=== PATIENT | female | born 1955 | race Caucasian/White ===

== ENCOUNTER → 2019-02-24 10:59 | Outpatient (BNVA) | payer MEDICARE, SELFPAY | PROVIDERS: PCP Family Medicine; Visit Provider Urology | DX: N39.0 Urinary tract infection, site not specified (principal) | CPT/HCPCS: 81001 ==

== ENCOUNTER → 2019-04-13 10:34 | Outpatient (BNVA) | payer MEDICARE, SELFPAY | PROVIDERS: PCP Family Medicine; Visit Provider Urology | DX: N39.0 Urinary tract infection, site not specified (principal) | CPT/HCPCS: 81001 ==

== ENCOUNTER 2019-06-13 12:46 | Outpatient (CLI) | payer MEDICARE, SELFPAY ==
--- NOTE | 2019-06-13 13:15 | XR_ITS ---
WS: [id number] XR KUB 76160 REASON FOR EXAM: Stone FINDINGS: There is evidence of previous cholecystectomy. No definite stones are seen in the region of the kidneys ureter bladder. XR/XR KUB 92075 IMPRESSION: Negative the abdominal survey.
== END 2019-06-13 12:47 | disposition home or self-care (01) ==
PROVIDERS: PCP Family Medicine; Visit Provider Nurse Practitioner Family
DX: R10.9 Unspecified abdominal pain (principal)
CPT/HCPCS: 74018; 80053; 81001

== ENCOUNTER → 2020-06-14 15:11 | Outpatient (BNVA) | payer MEDICARE, SELFPAY | PROVIDERS: PCP Nurse Practitioner Family; Visit Provider Nurse Practitioner Family | DX: N39.41 Urge incontinence (principal); N39.0 Urinary tract infection, site not specified | CPT/HCPCS: 87086 ==

== ENCOUNTER → 2020-07-30 11:45 | Outpatient (BNVA) | payer MEDICARE, SELFPAY | PROVIDERS: PCP Nurse Practitioner Family; Visit Provider Nurse Practitioner Family | DX: N39.0 Urinary tract infection, site not specified (principal); N39.41 Urge incontinence | CPT/HCPCS: 81003; 87086 ==

== ENCOUNTER → 2020-09-26 13:57 | Outpatient (BNVA) | payer MEDICARE, SELFPAY | PROVIDERS: PCP Nurse Practitioner Family; Visit Provider Urology | DX: N39.41 Urge incontinence (principal); N39.0 Urinary tract infection, site not specified; B37.3 Candidiasis of vulva and vagina | CPT/HCPCS: 81003 ==

== ENCOUNTER 2020-11-29 10:21 | Emergency (ER) | payer MEDICARE, SELFPAY ==
[2020-11-29 10:25] VITALS: BP 157/77; PULSE 88; RESP 18; TEMP 36.6; O2SAT 90; BMI 21.4
--- NOTE | 2020-11-29 10:42 | ED_ITS ---
HPI - Syncope General: Chief Complaint: Syncope Stated Complaint: FALL, L HIP PAIN Time Seen by Provider: 11/29/20 10:25 History of Present Illness: HPI narrative: Patient is a 65-year-old female comes to the ED with a syncopal episode. Patient lives at long-term and says that fall occurred there. She stood up from sitting to grab something and states she blacked out. She was found then on the floor by her roommate. Her main complaint is bilateral hip pain. Patient says she has had syncopal episodes in the past. She denies any headache, neck pain, chest pain, shortness of breath, abdominal pain, nausea/vomiting, bladder or bowel symptoms. Associated symptoms: Deny abdominal pain, chest pain, fever(s), headache(s) or nausea Review of Systems Const: Denies: fever(s), chills or fatigue Eyes: Denies: change in vision or eye discomfort ENMT: Denies: throat pain, odynophagia, nasal discharge or nasal congestion Card: Reports: syncope; Denies: chest pain, palpitations, edema, swelling of feet/ankles, dyspnea on exertion or orthopnea Resp: Denies: dyspnea, productive cough or non-productive cough GI: Denies: abdominal pain, nausea, vomiting, diarrhea, constipation or hematochezia : Denies: flank pain, dysuria or hematuria Musc: Reports: joint pain (bilateral hip pain); Denies: neck pain, back pain or extremity swelling Skin/Breast: Denies: rash or new lesions Neuro: Denies: headache(s), numbness in extremities or weakness in extremities PFS ED PFSH: Medical History GERD (gastroesophageal reflux disease) Hypertension Left flank pain Left renal stone Recurrent urinary tract infection Seizure disorder Urgency incontinence Surgical History S/P appendectomy S/P brain surgery S/P cholecystectomy S/P hysterectomy Family History Family/Other CAD (coronary artery disease) Lung disease Mother , at age 87 Heart attack Father , AT AGE 56 Heart attack Social History Smoking and tobacco status: current every day smoker e-cigarettes Alcohol intake: never Adopted: No Caregiver/support person: No Lives independently: No Housing: Assisted Living Facility Marital status: / Current occupational status: retired History of recent travel: No Current gender identity: Female Physical Exam Const: COMMON NORMALS: no acute distress, patient oriented x3, healthy appearing and alert GENERAL APPEARANCE: cooperative and comfortable HENMT: COMMON NORMALS: normocephalic HEAD & SCALP: normocephalic MOUTH: Normal oral and palatal mucosa present THROAT: posterior oropharynx normal and uvula midline Neck/C-Spine: COMMON NORMALS: supple GENERAL: Yes normal visual inspection Resp: COMMON NORMALS: normal respiratory effort, No retractions, No use of accessory muscles and clear to auscultation bilaterally AUSCULTATION: clear to auscultation bilaterally Cardio: COMMON NORMALS: regular rate, regular rhythm, S1 normal heart sound present, S2 normal heart sound present, No gallops present (Cardio), No clicks present (Cardio), No murmurs present (Cardio) and Peripheral pulses 2+ throughout RATE: regular rate RHYTHM: regular rhythm HEART SOUNDS: S1 normal heart sound present and S2 normal heart sound present PERIPHERAL PULSES: Peripheral pulses 2+ throughout GI: COMMON NORMALS: Normal to inspection, nondistended, normoactive bowel sounds present, Soft to palpation, non-tender and no masses PALPATION: Yes Soft to palpation : COMMON NORMALS: Yes no CVA tenderness BLADDER/KIDNEY EXAM: Yes no CVA tenderness Back/Pelvis: COMMON NORMALS: no CVA tenderness Extremity: COMMON NORMALS: normal to inspection Neuro: COMMON NORMALS: patient oriented x3 and moves all extremities SENSORIUM/ORIENTATION: Yes alert Skin: GENERAL SKIN EXAM: dry skin Course ED course: Patient was unable to urinate while here in the ED. The nurse performed a bladder scan and she had over 600 mL of urine in her bladder and was unable to urinate. Cardenas catheter was then placed by nurse. Vital Signs: Vital signs: Vital Signs Temperature 97.6 F 11/29/20 10:43 Pulse Rate 80 11/29/20 10:43 Respiratory Rate 26 H 11/29/20 10:43 Blood Pressure 152/80 11/29/20 10:43 Pulse Oximetry 92 11/29/20 10:43 MDM - Syncope MDM Narrative: Medical decision making narrative: Patient is a 65-year-old female that resides in a long-term and had a syncopal episode just prior to arrival. Patient says she stood up and then blacked out. She says she has had problems in the past with having episodes of syncope when she goes from sitting to standing. Her main complaint currently is hip pain, but denies any headache or neck pain. She does report feeling the need to urinate but is unable to go. Nurse performed on bladder scan and over 600 mL were detected. Nurse then placed a Cardenas catheter and patient had over 600 mL of urine drained out. Patient felt like her main reason she could not urinate was because she did not feel comfortable going on a bedpan. Upon arrival patient's O2 saturation was about 90 to 92% on room air. She was then put on 2 L of oxygen via nasal cannula. She was then taken off the oxygen during her time here in the ED and her O2 levels remained consistently above 94%. Vital stable. exam was benign. EKGs showed sinus rhythm with a rate around [address] segment elevation or depression seen. Troponins were negative. CBC and CMP were unremarkable. UA showed no signs of infection. X-ray of bilateral hip showed a nondisplaced left pubic symphysis fracture. Head CT and cervical spine CT showed no acute findings. Chest x-ray was normal. I placed an order with case management for patient to have referral to urology and orthopedic. Patient was diagnosed with a left pubic symphysis fracture and acute urinary retention. She was discharged back to her long-term facility with a Cardenas catheter in place and a prescription for hydrocodone to help with pain from fracture. Return to ED precautions given. Patient was told that case management will contact them to set her up with appointments with urology and Ortho. Return to ED precautions given. Patient understood and agreed with plan. Lab Data: Attestation: I reviewed the patient's lab results. Labs: Lab Results 11/29/20 11/29/20 11/29/20 11:00 11:00 11:00 WBC 8.3 10^3/uL 10^3/ uL (4.0-10.0) RBC 4.49 10^6/uL 10^6 /uL (4.1-5.3) Hgb 13.3 g/dL g/dL (11.5-15.3) Hct 41.7 % % (37.0-47.0) MCV 92.9 fl fl (81-99) MCH 29.6 pg pg (28.0-34.0) MCHC 31.9 g/dL g/dL (30.0-36.0) RDW 21.3 % H % (12.1-15.1) Plt Count 172 10^3/cmm 10^3 /cmm (130-400) MPV 11.2 fL H fL (7.4-10.4) Neut % (Auto) 64.4 % % Lymph % (Auto) 15.8 % % Craven % (Auto) 17.6 % % Eos % (Auto) 0.6 % % Baso % (Auto) 0.4 % % Neut # (Auto) 5.32 10^3/uL 10^3 /uL (1.8-7.7) Lymph # (Auto) 1.3 10^3/uL 10^3/ uL (0.8-4.8) Craven # (Auto) 1.5 10^3/uL H 10^ 3/uL (0.2-0.9) Eos # (Auto) 0.1 10^3/uL 10^3/ uL (0.0-0.8) Baso # (Auto) 0.0 10^3/uL 10^3/ uL (0.0-0.1) Nucleated RBC % (a uto) 0 % % Nucleated RBCs # 0.0 /100WBC /100W BC PT INR APTT Specimen Type Sample Site ABG pH ABG pCO2 ABG pO2 ABG HCO3 ABG O2 Saturation ABG Base Excess Jett Test A-a O2 Gradient Hematocrit Hgb O2 Saturation Carboxyhemoglobin Methemoglobin Total Hemoglobin Ionized Calcium O2 Delivery Device O2 Liters/Min FiO2 Ecdis N Navigation Operator ID Sodium Cancelled Potassium Cancelled Chloride Cancelled Carbon Dioxide Cancelled Anion Gap Cancelled BUN Cancelled Creatinine Cancelled GFR Calculation Cancelled Glucose Cancelled Calculated Osmolal ity Cancelled Lactic Acid Calcium Cancelled Magnesium Cancelled Total Bilirubin Cancelled AST Cancelled ALT Cancelled Alkaline Phosphata se Cancelled Troponin T Baselin e Cancelled Troponin T 120 Min ale Delta Troponin T NT-Pro-B Natriuret Pep Cancelled Total Protein Cancelled Albumin Cancelled Globulin Cancelled Urine Color Urine Appearance Urine pH Ur Specific Gravit y Urine Protein Urine Glucose (UA) Urine Ketones Urine Blood Urine Nitrate Urine Bilirubin Urine Urobilinogen Ur Leukocyte Sabrina ase 11/29/20 11/29/20 11/29/20 11:00 11:00 11:14 WBC RBC Hgb Hct MCV MCH MCHC RDW Plt Count MPV Neut % (Auto) Lymph % (Auto) Craven % (Auto) Eos % (Auto) Baso % (Auto) Neut # (Auto) Lymph # (Auto) Craven # (Auto) Eos # (Auto) Baso # (Auto) Nucleated RBC % (a uto) Nucleated RBCs # PT Cancelled INR Cancelled APTT Cancelled Specimen Type Arterial Sample Site Brachial, right ABG pH 7.47 H (7.35-7.45) ABG pCO2 37.7 mmHg mmHg (35-45) ABG pO2 65.3 mmHg L mmHg (80.0-100.0) ABG HCO3 27.4 mmol/L H mmo l/L (22-26) ABG O2 Saturation 94.3 ABG Base Excess 3.7 mmol/L H mmol /L (-2.0-2.0) Jett Test N/a A-a O2 Gradient 11.5 mmHg H mmHg (5-10) Hematocrit 40.1 % % (37-47) Hgb O2 Saturation 92.6 % L % (95-100) Carboxyhemoglobin 1.4 %THgb %THgb (0.4-20.1) Methemoglobin 0.3 % L % (0.4-1.5) Total Hemoglobin 13.1 g/dL g/dL (12-16) Ionized Calcium 1.2 mmol/L mmol/L (1.1-1.4) O2 Delivery Device Nc O2 Liters/Min 2.0 % % FiO2 28.0 % % Ecdis N Navigation Operator ID Ed Sodium 137.0 mmol/L mmol /L (131-143) Potassium 4.0 mmol/L mmol/L (3.5-5.0) Chloride Carbon Dioxide Anion Gap BUN Creatinine GFR Calculation Glucose 98.0 mg/dL mg/dL (70-115) Calculated Osmolal ity Lactic Acid Cancelled Calcium Magnesium Total Bilirubin AST ALT Alkaline Phosphata se Troponin T Baselin e Troponin T 120 Min ale Delta Troponin T NT-Pro-B Natriuret Pep Total Protein Albumin Globulin Urine Color Urine Appearance Urine pH Ur Specific Gravit y Urine Protein Urine Glucose (UA) Urine Ketones Urine Blood Urine Nitrate Urine Bilirubin Urine Urobilinogen Ur Leukocyte Sabrina ase 11/29/20 11/29/20 11/29/20 12:05 12:05 12:05 WBC RBC Hgb Hct MCV MCH MCHC RDW Plt Count MPV Neut % (Auto) Lymph % (Auto) Craven % (Auto) Eos % (Auto) Baso % (Auto) Neut # (Auto) Lymph # (Auto) Craven # (Auto) Eos # (Auto) Baso # (Auto) Nucleated RBC % (a uto) Nucleated RBCs # PT 13.10 SECONDS SEC ONDS (12.1-14.9) INR 0.96 (0.8-1.2) APTT 32.9 SECONDS SECO NDS (23.9-36.7) Specimen Type Sample Site ABG pH ABG pCO2 ABG pO2 ABG HCO3 ABG O2 Saturation ABG Base Excess Jett Test A-a O2 Gradient Hematocrit Hgb O2 Saturation Carboxyhemoglobin Methemoglobin Total Hemoglobin Ionized Calcium O2 Delivery Device O2 Liters/Min FiO2 Ecdis N Navigation Operator ID Sodium 135 mmol/L L mmol /L (136-145) Potassium 4.0 mmol/L mmol/L (3.5-5.1) Chloride 97 mmol/L L mmol/ L (98-107) Carbon Dioxide 28 mmol/L mmol/L (22-29) Anion Gap 14.0 (5-19) BUN 15 mg/dL mg/dL (8-23) Creatinine 0.8 mg/dL mg/dL (0.5-0.9) GFR Calculation 71.8 mL/min L mL/ min (90-130) Glucose 89 mg/dL mg/dL (65-115) Calculated Osmolal ity 280 mOsm/kg L mOs m/kg (285-295) Lactic Acid Calcium 9.1 mg/dL mg/dL (8.5-10.5) Magnesium 2.1 mg/dL mg/dL (1.7-2.3) Total Bilirubin 0.2 mg/dL mg/dL (0.15-1.2) AST 33 U/L H U/L (0-32) ALT 15 U/L U/L (0-33) Alkaline Phosphata se 125 IU/L H IU/L (35-105) Troponin T Baselin e 25 ng/L H ng/L (0-10) Troponin T 120 Min ale Delta Troponin T NT-Pro-B Natriuret Pep 350 pg/mL H pg/mL (0-125) Total Protein 6.4 g/dL L g/dL (6.6-8.7) Albumin 3.9 g/dL g/dL (3.5-5.2) Globulin 2.5 g/dL g/dL (1.3-4.6) Urine Color Urine Appearance Urine pH Ur Specific Gravit y Urine Protein Urine Glucose (UA) Urine Ketones Urine Blood Urine Nitrate Urine Bilirubin Urine Urobilinogen Ur Leukocyte Sabrina ase 11/29/20 11/29/20 11/29/20 12:05 12:55 13:40 WBC RBC Hgb Hct MCV MCH MCHC RDW Plt Count MPV Neut % (Auto) Lymph % (Auto) Craven % (Auto) Eos % (Auto) Baso % (Auto) Neut # (Auto) Lymph # (Auto) Craven # (Auto) Eos # (Auto) Baso # (Auto) Nucleated RBC % (a uto) Nucleated RBCs # PT INR APTT Specimen Type Sample Site ABG pH ABG pCO2 ABG pO2 ABG HCO3 ABG O2 Saturation ABG Base Excess Jett Test A-a O2 Gradient Hematocrit Hgb O2 Saturation Carboxyhemoglobin Methemoglobin Total Hemoglobin Ionized Calcium O2 Delivery Device O2 Liters/Min FiO2 Ecdis N Navigation Operator ID Sodium Potassium Chloride Carbon Dioxide Anion Gap BUN Creatinine GFR Calculation Glucose Calculated Osmolal ity Lactic Acid 1.1 mmol/L mmol/L (0.5-2.2) Calcium Magnesium Total Bilirubin AST ALT Alkaline Phosphata se Troponin T Baselin e Troponin T 120 Min ale 20.20 ng/L H ng/L (0-10) Delta Troponin T -4.80 ABS# L ABS# (0-10) NT-Pro-B Natriuret Pep Total Protein Albumin Globulin Urine Color Yellow (Yellow) Urine Appearance Clear (CLEAR) Urine pH 7 (5-7) Ur Specific Gravit y 1.005 (1.005-1.030) Urine Protein Neg (Negative) Urine Glucose (UA) Norm (Normal) Urine Ketones Negative (Negative) Urine Blood Neg (Negative) Urine Nitrate Negative (Negative) Urine Bilirubin Neg (Negative) Urine Urobilinogen Norm mg/dL mg/dL (Negative) Ur Leukocyte Sabrina ase Negative (Negative) Imaging Data^: Other CT: Attestation: I personally reviewed and interpreted this imaging study as follow s: Radiologist's impression: [facility] [address] [place] [address] Scan Report Signed Patient: Carla Daniel Unit #: [id number] : 1955 Age/Sex: 65 / F ADM Date: 11/29/20 Loc: ER Room/Bed: Attending Dr: Ordering Provider/Ordering MD: Too Rodriguez Date of Service: 11/29/20 Procedure(s): CT cervical spin wo con* [id number] Accession Number(s): [id number] Report Number: [id number] WS: [id number] CT CERVICAL TRAUMA TECHNIQUE: Noncontrast CT of the cervical spine with coronal and sagittal reformatted images. CLINICAL INFORMATION: syncopal episode COMPARISON: None. DLP: 622.[address] scans at [facility] use at least one of these dose optimization techniques: automated exposure control; mA and/or kV adjustment per patient size (includes targeted exams where dose is matched to clinical indication); or iterative reconstruction. FINDINGS: Slight exaggeration of the normal cervical lordosis. Anterior cervical fusion with C4-C6 with fusion hardware at C4-5. Mild chronic appearing anterior wedging in the upper thoracic spine at T2, T3, T4, and T5. This is likely chronic. Normal dens. Normal C1-C2 articulation. Normal occipital condyles. No high-grade spinal canal narrowing. Normal C1 ring. No evidence of acute fracture or dislocation. Normal prevertebral soft tissues. Mastoids air cells are well aerated. CT/CT cervical spin wo con* [id number] IMPRESSION: 1. No evidence of acute fracture or dislocation. 2. Exaggeration the normal cervical lordosis with prior anterior fusion C4-C6. 3. Mild chronic appearing anterior wedging in the upper thoracic spine described above. Dictated By: Ibrahima Harris MD Signed By: Ibrahima Harris MD Signed Date/Time: 11/29/20 1250 DD/ 1246 CT Head: Attestation: I personally reviewed and interpreted this imaging study as follow s: Radiologist's impression: [facility] [address] [facility] [place] [address] CT Scan Report Signed Patient: Carla Daniel Unit #: [id number] : 1955 Age/Sex: 65 / F ADM Date: 11/29/20 Loc: ER Room/Bed: Attending Dr: Ordering Provider/Ordering MD: Too Rodriguez Date of Service: 11/29/20 Procedure(s): CT head wo con* [id number] Accession Number(s): [id number] Report Number: [id number] WS: [id number] CT HEAD TECHNIQUE: Noncontrast CT of the head obtained from the skullbase to the vertex. CLINICAL INFORMATION: Syncopal episode COMPARISON: None. DLP: 781.[address] scans at [facility] use at least one of these dose optimization techniques: automated exposure control; mA and/or kV adjustment per patient size (includes targeted exams where dose is matched to clinical indication); or iterative reconstruction. FINDINGS: No evidence of intracranial hemorrhage or mass effect. Prior postoperative changes left frontal parietal craniotomy. Ventricular system and basal cisterns are patent. Mild small vessel changes with moderate parenchymal volume loss. No extra-axial fluid collections. No evidence of mass or mass effect. Paranasal sinuses and mastoid air cells are well aerated. .Normal visualized soft tissues. CT/CT head wo con* 36499 IMPRESSION: 1. No evidence of intracranial hemorrhage or mass effect. 2. Prior postoperative changes left frontal programmable right. 3. Mild small vessel changes with moderate parenchymal volume loss. 4. No acute intracranial findings. Dictated By: Ibrahima Harris MD Signed By: Ibrahima Harris MD Signed Date/Time: 11/29/20 1246 DD/ 1237 Xray Ortho: Attestation: I personally reviewed and interpreted this imaging study as follows: Radiologist's impression: [facility] [address] [facility] [place] [address] XRay Report Signed Patient: Carla Daniel Unit #: [id number] : 1955 [id number] Age/Sex: 65 / F ADM Date: 11/29/20 Loc: ER Room/Bed: Attending Dr: Ordering Provider/Ordering MD: Too Rodriguez Date of Service: 11/29/20 Procedure(s): XR hip BI m 5V wo/w pel* 66710 Accession Number(s): [id number] Report Number: [id number] WS: [id number] AP pelvis, bilateral hips, 2 views each, 11/29/2020 Clinical Data: fall with bilateral hip pain Comparison: KUB, 06/13/2019. Findings: There is a nondisplaced fracture of the left pubic symphysis. The hips show no fractures. The hips show no erosion, sclerosis, narrowing or cyst formation. The SI joints are normal. There is a density adjacent to the right iliac crest which could be in the soft tissue of the buttocks. There is vascular calcification of the iliac arteries. The bladder is full. XR/XR hip BI m 5V wo/w pel* 06822 Impression: 1. Undisplaced fracture of the left pubic symphysis. 2. Negative for hip fracture. Dictated By: Princess Farah MD Signed By: Princess Farah MD Signed Date/Time: 11/29/20 1258 DD/ 1254 CXR: Attestation: I personally reviewed and interpreted this imaging study as follows: Radiologist's impression: [address] [id number] ReportSigned Patient: Michael Daniel #: [id number]: 5Acct#:[id number]/Sex: 65 / FADM Date: 11/29/20Loc: ERRoom/Bed:Attending Dr: Ordering Provider/Ordering MD: Too Rodriguez Date of Service: 11/29/20 Procedure(s): XR chest 1V portable [id number] Accession Number(s): [id number] Report Number: [id number] WS: [id number] Portable AP upright chest, 11/29/2020 Clinical Data: syncopal episode Comparison: None. Findings: No nodules, masses or effusions are seen. The heart is normal. The pulmonary vascularity is not increased. No pneumonia or pneumothorax is seen. The aortic arch and descending thoracic aorta show calcification and tortuosity. There is a right internal jugular venous catheter which ends in the superior vena cava. The patient has had an anterior cervical disc fusion. There is a healed fracture of the right humeral neck. There is a possible calcification adjacent to greater tuberosity which may represent calcific bursitis or tendinitis. There are monitor leads on the chest wall. XR/XR chest 1V portable 24050 Impression: Atherosclerosis. Dictated By:Princess Farah MDSigned By:Princess Farah MDSigned Date/Time:11/29/20 1319DD/ 1317 EKG Data^: EKG 1: Attestation: I personally reviewed and interpreted this EKG as follows: EKG interpretation date: 11/29/20 EKG interpretation time: 10:59 Interpretation: Sinus rhythm, 79 bpm, no ST segment elevation or depression seen. Computer Generated Interpretation: [address] [id number] ReportSigned Patient: Michael Daniel #: [id number]: 5Acct#:[id number]/Sex: 65 / FADM Date: 11/29/20Loc: ERRoom/Bed:Attending Dr: Ordering Provider/Ordering MD: Too Rodriguez Date of Service: 11/29/20 Procedure(s): ECG 12 lead EKG Accession Number(s): [id number] Report Number: [id number] [facility] Test Date: 2020-11-29 Pat Name: Carla Daniel Department: Room: Gender: Female Ct Technician: : 1955 Requested By: Too Rodriguez Order Number: [id number] Reading MD: EDGAR NIETO Measurements Intervals [place] Rate: 76 P: 64 NC: 180 QRS: -33 QRSD: 87 T: 47 QT: 362 QTc: 408 Interpretive Statements SINUS RHYTHM LEFT AXIS DEVIATION [QRS AXIS < -30] No previous ECG available for comparison Electronically Signed On 11-29-2020 13:56:29 CDT by EDGAR NIETO [email or web address] Dictated By:Edgar Nieto MDSigned By:Edgar Nieto MDSigned Date/Time:11/29/20 1357DD/ 1100 EKG 2: Attestation: I personally reviewed and interpreted this EKG as follows: EKG interpretation date: 11/29/20 EKG interpretation time: 13:09 Interpretation: Sinus rhythm, 74 bpm, no ST segment elevation or depression seen. Discharge Plan Discharge Patient Disposition: Home Clinical Impression: Acute urinary retention Closed fracture of symphysis pubis Qualifiers: Encounter type: initial encounter Laterality: left Qualified Code(s): S32.592A - Other specified fracture of left pubis, initial encounter for closed fracture Episode of syncope Qualifiers: Syncope type: vasovagal syncope Qualified Code(s): R55 - Syncope and collapse Condition: Stable Prescriptions: No Action divalproex 500 mg tablet,delayed release (DR/EC) 500 mg PO TID RF: 0 ferrous sulfate 325 mg (65 mg iron) tablet 325 mg PO DAILY@08 RF: 0 gabapentin 600 mg tablet 600 mg PO TID RF: 0 acetaminophen 500 mg capsule 500 mg PO Q6H PRN (Reason: Pain) RF: 0 baclofen 10 mg tablet 10 mg PO TID RF: 0 diphenhydramine HCl [Banophen] 25 mg capsule 25 mg PO TID PRN (Reason: UNKNOWN) RF: 0 loperamide 2 mg capsule 2 mg PO Q4H PRN (Reason: Diarrhea) RF: 0 prochlorperazine maleate [Compazine] 10 mg tablet 10 mg PO Q6H RF: 0 simvastatin 20 mg tablet 20 mg PO BEDTIME@20 RF: 0 metoprolol succinate 100 mg tablet extended release 24 hr 100 mg PO DAILY@08 RF: 0 Symbicort 160-4.5 mcg/actuation HFA aerosol inhaler 2 puff INHALATION BID@0630,1600 RF: 0 sennosides-docusate sodium 8.6-50 mg capsule 2 tab-cap PO BEDTIME@20 RF: 0 docusate sodium 100 mg capsule 100 mg PO BID PRN (Reason: Constipation) RF: 0 furosemide 40 mg Tablet 40 mg PO BID@0630,1300 RF: 0 phenytoin sodium extended 100 mg Capsule 100 mg PO TID RF: 0 Zofran ODT 8 mg Tablet,Disintegrating 8 mg PO Q8H RF: 0 albuterol sulfate 90 mcg/actuation Hfa Aerosol Inhaler 2 puff INHALATION Q6H PRN (Reason: Shortness Of Breath) RF: 0 oxycodone 5 mg Tablet 5 mg PO Q8H PRN (Reason: Pain) RF: 0 acidophilus-pectin, citrus 25 million cell -100 mg Tablet 1 tab PO DAILY@08 RF: 0 potassium chloride 20 mEq Tablet Extended Release 20 meq PO BID@0630,1300 RF: 0 oxybutynin chloride 10 mg tablet extended release 24hr 10 mg PO DAILY@08 RF: 0 Discharge Orders: Discharge ED (Routine); Ordered 11/29/20 Ordered By: Too Rodriguez Referrals: Shawanda Flynn [Primary Care Provider] - Discharge Diet: Regular Discharge Activity: Resume usual activity Patient Instructions: Pelvic Fracture (ED), Cardenas Catheter Placement and Care (ED), Chronic Urinary Retention in Women (ED), Opioid Safety, Urinary Retention Activity Restrictions/Additional Instructions: Follow-up with medical provider as directed. Case management will be contacting you to set up an appointment with orthopedic doctor and the urologist for further evaluation. Take medications as prescribed. Limit activity and rest to allow for pelvic fracture to heal. Return to the ER or your medical provider if condition worsens. Please read and understand discharge instructions. Thank you for choosing [facility] for your healthcare needs today. Please realize this is an emergency room and that we are providing you with a medical screening exam and this may not be complete and all inclusive of all the testing and or work up that you may need to determine your ailment or severity of your illness. It is very important that you follow up as instructed or that you return to the Emergency Department should you have concerns or if your condition changes or worsens in any way. Coding Level of Care Code ED Recreational Director for Morelia Yeung Exam Comprehensive
[2020-11-29 10:43] VITALS: BP 152/80; PULSE 78; PULSE 80; RESP 26; TEMP 36.4; O2SAT 92
--- NOTE | 2020-11-29 10:43 | ECG_ITS ---
[facility] Test Date: 2020-11-29 Pat Name: Carla Daniel Department: Room: Gender: Female Financial Legal Assistant: : 1955 Requested By: Too Rodriguez Order Number: [id number] Sharmin MD: EDGAR SEYMOUR Measurements Intervals [place] Rate: 76 P: 64 NC: 180 QRS: -33 QRSD: 87 T: 47 QT: 362 QTc: 408 Interpretive Statements SINUS RHYTHM LEFT AXIS DEVIATION [QRS AXIS < -30] No previous ECG available for comparison Electronically Signed On 11-29-2020 13:56:29 CDT by EDGAR SEYMOUR [id number]
--- NOTE | 2020-11-29 10:48 | CT_ITS ---
WS: [id number] CT CERVICAL TRAUMA TECHNIQUE: Noncontrast CT of the cervical spine with coronal and sagittal reformatted images. CLINICAL INFORMATION: syncopal episode COMPARISON: None. DLP: 622.[address] scans at [facility] use at least one of these dose optimization techniques: automated e xposure control; mA and/or kV adjustment per patient size (includes targeted exams where dose is matc hed to clinical indication); or iterative reconstruction. FINDINGS: Slight exaggeration of the normal cervical lordosis. Anterior cervical fusion with C4-C6 with fusion hardware at C4-5. Mild chronic appearing anterior wedging in the upper thoracic spine at T2, T3, T4, and T5. This is likely chronic. Normal dens. Normal C1-C2 articulation. Normal occipital condyles. No high-grade spinal canal narrowing. Normal C1 ring. No evidence of acute fracture or dislocation. Normal prevertebral soft tissues. Mastoids air cells are well aerated. CT/CT cervical spin wo con* [id number] IMPRESSION: 1. No evidence of acute fracture or dislocation. 2. Exaggeration the normal cervical lordosis with prior anterior fusion C4-C6. 3. Mild chronic appearing anterior wedging in the upper thoracic spine describ ed above.
--- NOTE | 2020-11-29 10:48 | CT_ITS ---
WS: [id number] CT HEAD TECHNIQUE: Noncontrast CT of the head obtained from the skullbase to the vertex. CLINICAL INFORMATION: Syncopal episode COMPARISON: None. DLP: 781.[address] scans at [facility] use at least one of these dose optimization techniques: automated e xposure control; mA and/or kV adjustment per patient size (includes targeted exams where dose is matc hed to clinical indication); or iterative reconstruction. FINDINGS: No evidence of intracranial hemorrhage or mass effect. Prior postoperative changes left frontal parie cody craniotomy. Ventricular system and basal cisterns are patent. Mild small vessel changes with mode rate parenchymal volume loss. No extra-axial fluid collections. No evidence of mass or mass effect. Paranasal sinuses and mastoid air cells are well aerated. .Normal visualized soft tissues. CT/CT head wo con* [id number] IMPRESSION: 1. No evidence of intracranial hemorrhage or mass effect. 2. Prior postoperative changes left frontal programmable right. 3. Mild small vessel changes with moderate parenchymal volume loss. 4. No acute intracranial findings.
[2020-11-29 11:16] LABS: Basophils % 0.4 %; Eosinophils # 0.1 10^3/uL (0.0-0.8); Eosinophils % 0.6 %; Hematocrit 41.7 % (37.0-47.0); Hemoglobin 13.3 g/dL (11.5-15.3); Lymphocytes # 1.3 10^3/uL (0.8-4.8); Lymphocytes % 15.8 %; Mean Corpuscular HGB Conc 31.9 g/dL (30.0-36.0); Mean Corpuscular Hemoglobin 29.6 pg (28.0-34.0); Mean Corpuscular Volume 92.9 fl (81-99); Mean Platelet Volume 11.2 fL (7.4-10.4); Monocytes # 1.5 10^3/uL (0.2-0.9); Monocytes % 17.6 %; Neutrophils # 5.32 10^3/uL (1.8-7.7); Neutrophils % 64.4 %; Nucleated Red Blood Cells % 0 %; Platelet Count 172 10^3/cmm (130-400); Red Blood Count 4.49 10^6/uL (4.1-5.3); Red Cell Distribution Width 21.3 % (12.1-15.1); White Blood Count 8.3 10^3/uL (4.0-10.0)
--- NOTE | 2020-11-29 11:22 | PC.PHAR ---
PT IS FROM [facility]- SPOKE WITH NURSE TYLOR FROM [facility] STATES THE PT HAD ALL AM MEDS TODAY
[2020-11-29 11:23] LABS: ABG PCO2 37.7 mmHg (35-45); ABG PH Result 7.47 (7.35-7.45); Arterial Blood Gas Hematocrit 40.1 % (37-47); Base Excess ABG 3.7 mmol/L (-2.0-2.0); Blood Gas Sample Type Arterial; Carboxyhemoglobin 1.4 %THgb (0.4-20.1); HCO3 ABG 27.4 mmol/L (22-26); HGB O2 Sat 92.6 % (95-100); Ionized Calcium Level - ABG 1.2 mmol/L (1.1-1.4); Methemoglobin 0.3 % (0.4-1.5); Oxygen Saturation ABG 94.3; PO2 ABG 65.3 mmHg (80.0-100.0); Total Hemoglobin 13.1 g/dL (12-16)
[2020-11-29 11:24] LABS: Alveolar-Arterial Oxygen Gradi 11.5 mmHg (5-10); Blood Gas Operator Identificat ED; Blood Gas Sample Site Brachial, right; Oxygen Device NC
--- NOTE | 2020-11-29 11:28 | PC.NURSE ---
Pt arrived via EMS from care facility where she lives alone. Pt reports a syncope episode with possible LOC, unknown if witnessed. Pt has a 20g in right forearm, placed by EMS. Pt A/O, vs taken, pt placed on monitor.
--- NOTE | 2020-11-29 12:02 | XR_ITS ---
WS: [id number] AP pelvis, bilateral hips, 2 views each, 11/29/2020 Clinical Data: fall with bilateral hip pain Comparison: KUB, 06/13/2019. Findings: There is a nondisplaced fracture of the left pubic symphysis. The hips show no fractures. The hips sh ow no erosion, sclerosis, narrowing or cyst formation. The SI joints are normal. There is a density a djacent to the right iliac crest which could be in the soft tissue of the buttocks. There is vascular calcification of the iliac arteries. The bladder is full. XR/XR hip BI m 5V wo/w pel* [id number] Impression: 1. Undisplaced fracture of the left pubic symphysis. 2. Negative for hip fracture.
[2020-11-29 12:32] LABS: INR 0.96 (0.8-1.2); Troponin(5th) Baseline 25 ng/L (0-10)
[2020-11-29 12:33] LABS: Partial Thromboplastin Time 32.9 SECONDS (23.9-36.7)
[2020-11-29 12:34] LABS: Lactic Sepsis W/Reflex 1.1 mmol/L (0.5-2.2)
--- NOTE | 2020-11-29 12:43 | ECG_ITS ---
[facility] Test Date: 2020-11-29 Pat Name: Carla Daniel Department: Room: Gender: Female Deck Hand: : 1955 Requested By: Too Rodriguez Order Number: [id number] Sharmin MD: EDGAR SEYMOUR Measurements Intervals [place] Rate: 74 P: 56 SC: 181 QRS: -34 QRSD: 88 T: 35 QT: 377 QTc: 420 Interpretive Statements SINUS RHYTHM LEFT AXIS DEVIATION [QRS AXIS < -30] SEPTAL MYOCARDIAL INFARCTION , PROBABLY OLD [40+ ms Q WAVE IN V1/V2] Compared to ECG 11/29/2020 11:00:06 Myocardial infarct finding now present Electronically Signed On 11-29-2020 13:56:51 CDT by EDGAR SEYMOUR [id number]
[2020-11-29 12:49] LABS: Alanine Aminotransferase 15 U/L (0-33); Albumin Level 3.9 g/dL (3.5-5.2); Alkaline Phosphatase 125 IU/L (35-105); Aspartate Amino Transferase 33 U/L (0-32); Blood Urea Nitrogen 15 mg/dL (8-23); Calcium 9.1 mg/dL (8.5-10.5); Carbon Dioxide 28 mmol/L (22-29); Chloride 97 mmol/L (98-107); Globulin 2.5 g/dL (1.3-4.6); Glomerular Filtration Rate 71.8 mL/min (90-130); Glucose 89 mg/dL (65-115); Magnesium 2.1 mg/dL (1.7-2.3); NT Pro B Type Natriuretic Pept 350 pg/mL (0-125); Osmolality Calculated 280 mOsm/kg (285-295); Sodium 135 mmol/L (136-145); Total Bilirubin 0.2 mg/dL (0.15-1.2); Total Protein 6.4 g/dL (6.6-8.7)
--- NOTE | 2020-11-29 13:00 | PC.NURSE ---
Bladder scan performed by Rosalee Bruce RN noting 600ml in bladder.
--- NOTE | 2020-11-29 13:00 | PC.NURSE ---
16 bulgarian floey catheter placed, no issues, simple insertion.
[2020-11-29 13:04] LABS: Add Urine Microscopic? NO; Charge for UA Resulting for Rev
--- NOTE | 2020-11-29 13:05 | XR_ITS ---
WS: [id number] Portable AP upright chest, 11/29/2020 Clinical Data: syncopal episode Comparison: None. Findings: No nodules, masses or effusions are seen. The heart is normal. The pulmonary vascularity is not increased. No pneumonia or pneumothorax is seen. The aortic arch and descending thoracic aorta s how calcification and tortuosity. There is a right internal jugular venous catheter which ends in the superior vena cava. The patient has had an anterior cervical disc fusion. There is a healed fracture of the right humeral neck. There is a possible calcification adjacent to greater tuberosity which ma y represent calcific bursitis or tendinitis. There are monitor leads on the chest wall. XR/XR chest 1V portable [id number] Impression: Atherosclerosis.
[2020-11-29 13:09] LABS: Bilirubin Urine Neg (Negative); Blood Urine Neg (Negative); Glucose Urine UA Norm (Normal); Ketones Urine Negative (Negative); Leukocyte Esterase Urine Negative (Negative); Nitrate Urine Negative (Negative); Protein Urine Neg (Negative); Specific Gravity, Urine 1.005 (1.005-1.030); Urine Appearance Clear (CLEAR); Urine Color Yellow (Yellow); Urobilinogen Urine Norm (Negative); pH Urine 7 (5-7)
--- NOTE | 2020-11-29 15:07 | PC.NURSE ---
Pt ready to discharge, [facility] called to arrange a ride. Staff at [facility] advised this RN they do not offer rides but usually crystal pts friend Florinda . Staff gave this RN Anns number; [phone]. Florinda called, no answer, unabl eto leave a voice mail. Charge advised.
--- NOTE | 2020-11-29 15:17 | PC.NURSE ---
Call to [facility] son Tomy; [phone], democrat answered and advised this RN Tomy was unavailabe. .ER phone number given to person and request for Tomy to return call [facility]. This RN advised to try a second phone number; [phone]
--- NOTE | 2020-11-29 16:32 | PC.NURSE ---
Tomy, pts brother calling back, states he will talk with his boss and leave early. ETA of approximately 20 minutes before he will arrive. minh Houser RN advised
--- NOTE | 2020-11-30 09:23 | DCPLANNER ---
pharmacy general manager had message to schedule a follow up appointment with ortho. pharmacy general manager called the ortho clinic, spoke with Tri, gave clinic patients information. pharmacy general manager was told that patients information would be printed and reviewed. Clinic will call patient with appointment information.
--- NOTE | 2020-11-30 09:43 | DCPLANNER ---
manager beauty had message to schedule a follow up appointment for patient with Dr. Montes. manager beauty called the office of Dr. Montes, spoke with Katie, gave clinic patients information. manager beauty was told that patients information would be printed and reviewed. Clinic will call patient with appointment information.
--- NOTE | 2020-12-20 09:52 | DCPLANNER ---
Patient has a follow up appointment scheduled for Thursday, December 31, 2020 at 1:[address] Montes. Clinic will call patient with appointment information.
--- NOTE | 2020-12-20 10:00 | DCPLANNER ---
Addendum entered by Shannan Leary 03/02/21 12:27: Patient had a follow up appointment scheduled with Dr. Montes - patient did attend appointment. Original Note: Patient had a follow up appointment scheduled for 12.14.[address] Huertas at [facility] - patient did attend appointment.
== END 2020-11-29 17:08 | disposition home or self-care (01) ==
PROVIDERS: Emergency Provider Physician Assistant; PCP Nurse Practitioner Family
DX: R55 Syncope and collapse (principal); S32.592A Other specified fracture of left pubis, initial encounter for closed fracture; R33.9 Retention of urine, unspecified; I10 Essential (primary) hypertension; F17.290 Nicotine dependence, other tobacco product, uncomplicated; W19.XXXA Unspecified fall, initial encounter; Y92.129 Unspecified place in nursing home as the place of occurrence of the external cause
CPT/HCPCS: 36600; 51702; 70450; 71045; 72125; 73523; 80051; 80053; 81003; 82330; 82805; 83605; 83735; 83880; 84484; 85025; 85610; 85730; 93005; 99284; 99291

== ENCOUNTER → 2020-12-14 10:05 | Outpatient (BNVA) | payer OTHER, MEDICARE, SELFPAY | PROVIDERS: PCP Nurse Practitioner Family; Referring Provider Physician Assistant; Visit Provider Orthopaedic Surgery | DX: S32.509A Unspecified fracture of unspecified pubis, initial encounter for closed fracture (principal); R10.2 Pelvic and perineal pain; X58.XXXA Exposure to other specified factors, initial encounter | CPT/HCPCS: 72190 ==

== ENCOUNTER → 2020-12-31 14:13 | Outpatient (BNVA) | payer MEDICARE, SELFPAY | PROVIDERS: PCP Nurse Practitioner Family; Visit Provider Nurse Practitioner Family | DX: N39.0 Urinary tract infection, site not specified (principal); R33.9 Retention of urine, unspecified | CPT/HCPCS: 81003; 87077; 87086; 87184 ==

== ENCOUNTER → 2021-01-14 13:36 | Outpatient (BNVA) | payer MEDICARE, SELFPAY | PROVIDERS: PCP Nurse Practitioner Family; Visit Provider Orthopaedic Surgery | DX: S32.592D Other specified fracture of left pubis, subsequent encounter for fracture with routine healing (principal); X58.XXXD Exposure to other specified factors, subsequent encounter | CPT/HCPCS: 72170 ==

== ENCOUNTER 2021-03-31 15:20 | Emergency (ER) | payer MEDICARE, SELFPAY ==
[2021-03-31 15:32] VITALS: BP 140/91; PULSE 95; RESP 20; TEMP 36.7; O2SAT 92; BMI 26.4
--- NOTE | 2021-03-31 15:32 | W.ED.FALL ---
HPI - Fall General: Chief Complaint: Extremity Injury, Lower Stated Complaint: LEFT FOOT PAIN S/P FALL Time Seen by Provider: 03/31/21 15:24 Source: patient Mode of arrival: EMS Limitations: no limitations History of Present Illness: This patient was transported from [facility] to our location by EMS. This patient stated that she injured her left foot last night when she fell. She states she fell to the ground when she missed stepped and tripped. She states that she did not suffer a prodrome such as syncope palpitations etc. prior to her fall. She states that since her fall she has had pain in her left foot and ankle. She denies other injury other than she does admit that she did strike her head when she fell. She does not take any antiplatelet or anticoagulant medication. She states that she has a longstanding tremor that she attributes to a sequelae of having Covid 2 years ago. She has had prior craniotomy for a what sounds like arachnoid cyst resection. complaint: fall Fall from: standing Place fall occurred: long term/SNF Context: tripped/slipped Location of injury - extremities: Left: ankle and foot Severity: moderate Associated symptoms-after fall: Denies abdominal pain, headache(s) or neck pain Review of Systems Const: Denies: fever(s) or chills Eyes: Reports: blurry vision (She states that when she puts the antibiotic ointment on her right eye her ), eye discharge and eye redness ENMT: Denies: throat pain or odynophagia Card: Denies: palpitations, irregular heart rhythm or syncope Resp: Denies: dyspnea, productive cough or non-productive cough GI: Denies: abdominal pain, nausea or vomiting : Denies: flank pain, difficulty voiding or dysuria Musc: Denies: neck pain, back pain or extremity pain Skin/Breast: Reports: rash (Right periorbital this developed after she began using the antibiotic ointm) Neuro: Denies: headache(s), numbness in extremities or weakness in extremities Psych: Denies: anxiety or depression Get/Lymph: Denies: easy bruising or easy bleeding PFS ED PFSH: Medical History GERD (gastroesophageal reflux disease) Hypertension Left flank pain Left renal stone Recurrent urinary tract infection Seizure disorder Urgency incontinence Surgical History S/P appendectomy S/P brain surgery S/P cholecystectomy S/P hysterectomy Family History Family/Other CAD (coronary artery disease) Lung disease Mother , at age 87 Heart attack Father , AT AGE 56 Heart attack Social History Alcohol intake: never Housing: Assisted Living Facility Marital status: / Current occupational status: retired History of recent travel: No Current gender identity: Female Physical Exam Narrative: EXAM NARRATIVE: Patient is alert and makes good eye contact. Speech is goal-directed. Const: COMMON NORMALS: no acute distress and patient oriented x3 HENMT: COMMON NORMALS: normocephalic (She does have palpable of frontal scalp defect from her prior craniotomy.), atraumatic and Normal external nose present HEAD & SCALP: normocephalic (She does have palpable of frontal scalp defect from her prior craniotomy.) and atraumatic FACE & SINUS: face symmetric NOSE: Normal external nose present Eye: COMMON NORMALS: Equal, round and reactive pupils present PERIORBITAL: periorbital findings abnormal (She has some erythema of the lid margins in the right orbit. ) CONJUNCTIVA: Yes conjunctival abnormal positive right conjunctival injection CORNEA: Yes corneas normal PUPIL: Yes Equal, round and reactive pupils present EOM: Yes EOM abnormal OTHER: EOMIsThe skin of the right orbital region is noted for some very minimal erythema of the right supraorbital ridge without any vesicles pustules etc. She also has erythema of the lid margins on the right eye. Full. There is no significant swelling of the preseptal soft tissue. Neck/C-Spine: COMMON NORMALS: full ROM and supple Lymph: LYMPHATIC: no lymphadenopathy noted Resp: COMMON NORMALS: normal respiratory effort, No use of accessory muscles and clear to auscultation bilaterally AUSCULTATION: clear to auscultation bilaterally Cardio: COMMON NORMALS: regular rhythm, No murmurs present (Cardio) and Peripheral pulses 2+ throughout RHYTHM: regular rhythm PERIPHERAL PULSES: Peripheral pulses 2+ throughout GI: COMMON NORMALS: Soft to palpation and non-tender PALPATION: Yes Soft to palpation : COMMON NORMALS: Yes no CVA tenderness BLADDER/KIDNEY EXAM: Yes no CVA tenderness Back/Pelvis: COMMON NORMALS: no CVA tenderness and no thoracic nor lumbar tenderness Extremity: COMMON NORMALS: no calf tenderness GENERAL: Yes normal exam except as noted LEFT LOWER EXTREMITY: Yes ankle joint and Yes foot & digits OTHER: Palpation over her left ankle and forefoot reveals tenderness. There is no ecchymosis. There is soft tissue swelling present. Proximal examination of the left lower extremity reveals no knee or hip tenderness. Neuro: COMMON NORMALS: patient oriented x3, moves all extremities, no focal motor deficits and no sensory deficits noted COORDINATION/BALANCE: hgfyxr-ey-haog test normal and omvx-we-wxqu test normal COORDINATION: etwxhj-cz-cfvo test normal and wpuw-uj-zsyn test normal OTHER: Patient is noted to have a regular bilateral upper extremity tremors 3 to 5 Hz. Psych: COMMON NORMALS: mental status grossly normal and Normal thought process present THOUGHT PROCESS: Normal thought process present Course Reevaluation(s): Reevaluation #1: Remained stable. No new or focal findings on reexamination. Time: 17:23 Vital Signs: Vital signs: Vital Signs Temperature 98.2 F 03/31/21 15:45 Pulse Rate 95 03/31/21 15:32 Respiratory Rate 18 03/31/21 15:45 Blood Pressure 140/91 03/31/21 15:45 Pulse Oximetry 92 03/31/21 15:45 MDM - Fall Medical Decision Making Clinical exam is reassuring. No gross evidence to suggest lower extremity fracture and likely represents soft tissue injury. Her imaging of her head ankle and foot are also reassuring. I think that we will provide a air cast for her left ankle and have her use a wheelchair at the long term for the next couple days and then resume using her walker as her injury improves. While she is not here because of her right eye I feel that she has a contact irritation from the antibiotic ointment which is a not uncommon occurrence. She has normal vision and no other findings to suggest infection, herpes etc. at this time. I advised her to stop the antibiotic ointment and use cool compresses for the next 2 to 3 days to improve the condition. If it does not improve she has visual changes etc. she should seek care immediately. She voiced understanding acknowledged our discussion. Stable for discharge at this time. Lab Data Radiology Impressions Ankle X-Ray 03/31/21 15:33 IMPRESSION: No acute findings. Foot X-Ray 03/31/21 15:33 IMPRESSION: No acute findings. Head CT 03/31/21 15:33 IMPRESSION: No acute intracranial abnormality. Discharge Plan Discharge Patient Disposition: Home Clinical Impression: Soft tissue injury of left ankle, Fall from ground level, Contact dermatitis of right upper and lower eyelids Condition: Stable Prescriptions: No Action divalproex 500 mg tablet,delayed release (DR/EC) 500 mg PO TID 0RF Rx Instructions: @06:30,12:00,16:00 ferrous sulfate 325 mg (65 mg iron) tablet 325 mg PO DAILY@08 0RF gabapentin 600 mg tablet 600 mg PO TID 0RF Rx Instructions: @06:30,12:00,20:00 baclofen 10 mg tablet 10 mg PO TID 0RF Rx Instructions: @06:30,12:00,20:00 loperamide 2 mg capsule 2 mg PO Q4H PRN (Reason: Diarrhea) 0RF prochlorperazine maleate [Compazine] 10 mg tablet 10 mg PO Q6H 0RF Rx Instructions: @05:00,12:00,17:00,23:00 simvastatin 20 mg tablet 20 mg PO BEDTIME@20 0RF metoprolol succinate 100 mg tablet extended release 24 hr 100 mg PO DAILY@08 0RF tramadol 50 mg tablet 50 mg PO Q6H PRN0RF sulfamethoxazole-trimethoprim 800-160 mg tablet 1 tab PO BID Qty: 60 1RF Symbicort 160-4.5 mcg/actuation HFA aerosol inhaler 2 puff INHALATION BID@0630,1600 0RF sennosides-docusate sodium 8.6-50 mg capsule 2 tab-cap PO BEDTIME@20 0RF docusate sodium 100 mg capsule 100 mg PO BID PRN (Reason: Constipation) 0RF amitriptyline 10 mg tablet 10 mg PO DAILY 0RF cetirizine 10 mg tablet 10 mg PO DAILY 0RF phenytoin sodium extended [Dilantin Extended] 100 mg capsule 100 mg PO TID 0RF lorazepam 2 mg/mL concentrate 2 mg PO DAILY PRN0RF morphine concentrate 100 mg/5 mL (20 mg/mL) solution 10 mg PO Q2H PRN0RF furosemide 40 mg Tablet 40 mg PO BID@0630,1300 0RF Zofran ODT 8 mg Tablet,Disintegrating 8 mg PO Q8H 0RF Rx Instructions: @06:00,14:00,22:00 albuterol sulfate 90 mcg/actuation Hfa Aerosol Inhaler 2 puff INHALATION Q6H PRN (Reason: Shortness Of Breath) 0RF oxycodone 5 mg Tablet 5 mg PO Q8H PRN (Reason: Pain) 0RF acidophilus-pectin, citrus 25 million cell -100 mg Tablet 1 tab PO DAILY@08 0RF potassium chloride 20 mEq Tablet Extended Release 20 meq PO BID@0630,1300 0RF oxybutynin chloride 10 mg tablet extended release 24hr 10 mg PO DAILY@08 0RF Discharge Orders: Discharge ED (Routine); Ordered 03/31/21 Ordered By: René Lopez Referrals: Shawanda Flynn [Primary Care Provider] - Discharge Diet: Advance as tolerated Discharge Activity: Increase activity as tolerated, Limit activity as instructed and Wheelchair as instructed Patient Instructions: Opioid Safety Activity Restrictions/Additional Instructions: As discussed we think you have a sprain of your left ankle and foot. You have no evidence of more serious injury at this time. We recommend using the air splint for the next 2 to 3 days for support when you are up on your feet. We recommend using a wheelchair to help with mobility until your feel more stable to use your walker to get around. If you have increasing pain, not improving or worsening any time over the next 5-7 days return to this or the nearest emergency department or follow-up with your regular physician. We recommend stopping the antibiotic ointment that she been using and use cool compresses. If you have visual changes or other concerns or your condition does not improve in the next 48 hours seek additional care. Coding Level of Care Code ED Associate Professor Of Surgery for [facility] Exam Comprehensive
--- NOTE | 2021-03-31 15:33 | XRR_ITS ---
PROCEDURE INFORMATION: Exam: XR Left Ankle Exam date and time: 03/31/2021 3:33 PM Age: 65 years old Clinical indication: Injury or trauma; Fall; Blunt trauma; Left; Injury date: 03/30/2021; Injury details: Per PT she fell last pm, PT denies surg HX on ankle/foot. PT has very limited rom in legs/feet TECHNIQUE: Imaging protocol: XR Left ankle. Views: 3 or more views. COMPARISON: No relevant prior studies available. FINDINGS: Bones/joints: Generalized osseous demineralization. Osseous structures are intact without fracture. Joint spaces are preserved. Soft tissues: Soft tissue swelling around the ankle. XR/XR ankle LT min 3V* [id number] IMPRESSION: No acute findings.
--- NOTE | 2021-03-31 15:33 | XRR_ITS ---
PROCEDURE INFORMATION: Exam: XR Left Foot Exam date and time: 03/31/2021 3:33 PM Age: 65 years old Clinical indication: Injury or trauma; Fall; Blunt trauma; Left; Injury date: 03/30/2021; Injury details: Per PT she fell last pm, PT denies surg HX on ankle/foot. PT has very limited rom in legs/feet TECHNIQUE: Imaging protocol: XR Left foot. Views: 3 or more views. COMPARISON: No relevant prior studies available. FINDINGS: Bones/joints: Generalized osseous demineralization. Osseous structures are intact without fracture. Joint spaces are preserved. Soft tissues: Normal. XR/XR foot LT min 3V* [id number] IMPRESSION: No acute findings.
--- NOTE | 2021-03-31 15:33 | CTR_ITS ---
PROCEDURE INFORMATION: Exam: CT Head Without Contrast Exam date and time: 03/31/2021 3:33 PM Age: 65 years old Clinical indication: Injury or trauma; Fall; Blunt trauma (contusions or hematomas); Without loss of consciousness; Injury details: Hit forehead; Prior surgery; Surgery date: 6+ months; Additional info: Head trauma-ground fall TECHNIQUE: Imaging protocol: Computed tomography of the head without contrast. Radiation optimization: All CT scans at this facility use at least one of these dose optimization techniques: automated exposure control; mA and/or kV adjustment per patient size (includes targeted exams where dose is matched to clinical indication); or iterative reconstruction. COMPARISON: CT head wo con* [id number] 11/29/2020 12:17 PM RADIATION DOSE METRICS: Total DLP (mGy-cm): 1270.85 FINDINGS: Brain: No hemorrhage. Moderate diffuse cerebral atrophy. No significant white matter disease. No mass effect. Cerebral ventricles: No ventriculomegaly. Paranasal sinuses: Visualized sinuses are unremarkable. No fluid levels. Mastoid air cells: Visualized mastoid air cells are well aerated. Bones/joints: Left frontal parietal craniotomy changes again noted. No acute fracture. Soft tissues: Unremarkable. CT/CT head wo con* [id number] IMPRESSION: No acute intracranial abnormality.
[2021-03-31 15:45] VITALS: BP 140/91; RESP 18; TEMP 36.8; O2SAT 92
--- NOTE | 2021-03-31 17:36 | PC.NURSE ---
Splint applied to Left ankle
[2021-03-31 17:42] VITALS: BP 125/72; RESP 18; O2SAT 95
[2021-03-31 17:52] VITALS: BP 125/71; PULSE 99; RESP 18; TEMP 36.8
--- NOTE | 2021-03-31 18:25 | PC.NURSE ---
Contacted pt's brother & he will be coming to pick up and delivery driver Mrs. Daniel & take her back to her facility.
[2021-03-31 19:00] VITALS: BP 125/72; RESP 18; O2SAT 95
== END 2021-03-31 19:31 | disposition home or self-care (01) ==
PROVIDERS: Emergency Provider Emergency Medicine; PCP Nurse Practitioner Family
DX: S99.812A Other specified injuries of left ankle, initial encounter (principal); L25.9 Unspecified contact dermatitis, unspecified cause; I10 Essential (primary) hypertension; W01.0XXA Fall on same level from slipping, tripping and stumbling without subsequent striking against object, initial encounter
CPT/HCPCS: 70450; 73610; 73630; 99283

== ENCOUNTER → 2021-04-29 16:59 | Outpatient (BNVA) | payer MEDICARE, SELFPAY | PROVIDERS: PCP Nurse Practitioner Family; Visit Provider Nurse Practitioner Family | DX: R33.9 Retention of urine, unspecified (principal) | CPT/HCPCS: 81003; 87077; 87086; 87184 ==

== ENCOUNTER → 2021-09-30 08:14 | Outpatient (BNVA) | payer MEDICARE, SELFPAY | PROVIDERS: PCP Nurse Practitioner Family; Visit Provider Nurse Practitioner Family | DX: R33.9 Retention of urine, unspecified (principal); N39.0 Urinary tract infection, site not specified; N20.0 Calculus of kidney | CPT/HCPCS: 51798; 81003; 87086; 99213 ==

== ENCOUNTER → 2021-11-26 15:03 | Outpatient (BNVA) | payer MEDICARE, SELFPAY | PROVIDERS: PCP Nurse Practitioner Family; Visit Provider Nurse Practitioner Family | DX: N39.0 Urinary tract infection, site not specified (principal); N39.41 Urge incontinence | CPT/HCPCS: 81003; 99213 ==

== ENCOUNTER → 2022-01-15 13:53 | Outpatient (BNVA) | payer MEDICARE, SELFPAY | PROVIDERS: PCP Nurse Practitioner Family; Visit Provider Otolaryngology | DX: H92.02 Otalgia, left ear (principal); M26.629 Arthralgia of temporomandibular joint, unspecified side; R59.0 Localized enlarged lymph nodes | CPT/HCPCS: 99202; 99203 ==

== ENCOUNTER → 2022-04-07 13:12 | Outpatient (BNVA) | payer MEDICARE, SELFPAY | PROVIDERS: PCP Nurse Practitioner Family; Visit Provider Obstetrics & Gynecology | DX: R10.2 Pelvic and perineal pain (principal) | CPT/HCPCS: 76857 ==

== ENCOUNTER 2022-04-25 11:58 | Outpatient (CLI) | payer MEDICARE, SELFPAY ==
[2022-04-25] MEDS: iohexol 350 mg/mL 500 mL Btl (per mL) IV (12:52)
[2022-04-25] MEDS: iohexol 350 mg/mL 500 mL Btl (per mL) PO (12:52)
[2022-04-25 12:59] LABS: Blood Urea Nitrogen 11 mg/dL (8-23); Glomerular Filtration Rate 123.1 mL/min (90-130)
--- NOTE | 2022-04-25 13:30 | CT_ITS ---
WS: [id number] CT ABDOMEN PELVIS TECHNIQUE: Noncontrast CT of the abdomen and contrast-enhanced CT of the abdomen and pelvis with anderson nal and sagittal reformatted images. CLINICAL INFORMATION: R10.2 - Pelvic and perineal pain COMPARISON: CT abdomen pelvis July 20, 2018 and ultrasound April 07, 2022 DLP: 505.[address] scans at [facility] use at least one of these dose optimization techniques: automated e xposure control; mA and/or kV adjustment per patient size (includes targeted exams where dose is matc hed to clinical indication); or iterative reconstruction. FINDINGS: Prior cholecystectomy. Mild intrahepatic and extrahepatic biliary dilatation unchanged the prior exam ination. Prior hysterectomy. Diffuse fatty infiltration liver. Hepatomegaly. Lung bases are well aera razia. Normal portal vein and splenic vein. Normal spleen. Normal GE junction. Normal caliber abdominal aorta. Aortic calcification. No aneurysm. Celiac and SMA are patent. Mild stenosis of the SMA origin . No hydronephrosis in either kidney. Small RIGHT greater than LEFT renal cysts. Adrenal glands are nor mal. Urine distended bladder. No free fluid in the abdomen or pelvis. Sigmoid diverticulosis. No evidence of acute diverticulitis. Prior postoperative changes partial colectomy. Chronic compression deformities at T12, L1, and L3 unchanged. CT/CT abdomen pelvis wo/w [id number] IMPRESSION: 1. No free fluid in the abdomen or pelvis to correspond to the ultrasound find ings. 2. Marked urinary distention of the bladder. Recommend correlation with bladde r outlet obstruction.. 3. Prior cholecystectomy. Stable intra and extra hepatic biliary ductal dilata tion. 4. Diffuse fatty infiltration liver with hepatomegaly. 5. Sigmoid diverticulosis. No evidence of acute diverticulitis. 6. Mild chronic compression deformities L1, L2, and T11 vertebral body superio r endplates unchanged.
== END 2022-04-25 11:59 | disposition home or self-care (01) ==
PROVIDERS: PCP Nurse Practitioner Family; Visit Provider Obstetrics & Gynecology
DX: R10.2 Pelvic and perineal pain (principal); Z90.49 Acquired absence of other specified parts of digestive tract; K76.0 Fatty (change of) liver, not elsewhere classified; R16.0 Hepatomegaly, not elsewhere classified; K57.30 Diverticulosis of large intestine without perforation or abscess without bleeding
CPT/HCPCS: 36415; 74178; 82565; 84520; Q9967

== ENCOUNTER → 2022-10-14 10:23 | Outpatient (BNVA) | payer MEDICARE, SELFPAY | PROVIDERS: PCP Nurse Practitioner Family; Visit Provider Otolaryngology | DX: J01.90 Acute sinusitis, unspecified (principal); R59.0 Localized enlarged lymph nodes; M26.623 Arthralgia of bilateral temporomandibular joint | CPT/HCPCS: 99213 ==

== ENCOUNTER → 2022-10-27 13:19 | Outpatient (BNVA) | payer MEDICARE, SELFPAY | PROVIDERS: PCP Nurse Practitioner Family; Visit Provider Otolaryngology | DX: R59.0 Localized enlarged lymph nodes (principal); J01.90 Acute sinusitis, unspecified | CPT/HCPCS: 99213 ==

== ENCOUNTER 2022-10-31 07:02 | Outpatient (CLI) | payer MEDICARE, SELFPAY ==
--- NOTE | 2022-10-31 07:00 | CT_ITS ---
WS: [id number] CT NECK TECHNIQUE: Contrast-enhanced CT of the neck with coronal and sagittal reformatted images. CLINICAL INFORMATION: thyroid DLP: 430.[address] scans at [facility] use at least one of these dose optimization techniques: automated e xposure control; mA and/or kV adjustment per patient size (includes targeted exams where dose is matc hed to clinical indication); or iterative reconstruction. FINDINGS: Deep to the palpable marker LEFT neck is a slightly prominent normal external jugular vein. No eviden ce of underlying pathologic mass or lesion. Homogeneous thyroid enhancement. No cervical lymphadenopathy. Paranasal sinuses and mastoid air cells are well aerated. Normal posterior nasopharynx. Normal parapharyngeal fat. Submandibular glands are normal. Normal parotid glands. Emphysematous changes in the lung apices. No evidence of supraglottic or glottic mass. Normal subglottic airway. Prior postoperative changes AC DF C4-C6. IMPRESSION: 1. Deep to the palpable marker LEFT neck is a slightly prominent external jugular vein. No evidence of underlying pathologic mass or lesion. 2. No other suspicious findings.
--- NOTE | 2022-10-31 07:30 | CT_ITS ---
WS: [id number] CT SINUSES TECHNIQUE: Noncontrast CT of the paranasal sinuses with coronal and sagittal reformatted images. CLINICAL INFORMATION: sinuses COMPARISON: None. DLP: 430.[address] scans at [facility] use at least one of these dose optimization techniques: automated e xposure control; mA and/or kV adjustment per patient size (includes targeted exams where dose is matc hed to clinical indication); or iterative reconstruction. FINDINGS: Mild RIGHT to LEFT nasal septal deviation measuring 3 mm. Paranasal sinuses are well aerated. Mild mucosal thickening in the ethmoid air cells. Sphenoid sinuse s are well aerated. Sphenoid ostia are patent. Mastoid air cells are well aerated. Normal posterior n asopharynx. Normal parapharyngeal fat. Ostiomeatal units are patent. IMPRESSION: 1. Mild RIGHT to LEFT nasal deviation measuring 3 mm. 2. Paranasal sinuses well aerated. 3. Mastoid air cells well aerated. 4. Ostiomeatal units are patent.
[2022-10-31 07:39] LABS: Blood Urea Nitrogen 16 mg/dL (8-23); Glomerular Filtration Rate 99.4 mL/min (90-130)
[2022-10-31] MEDS: iohexol 350 mg/mL 500 mL Btl (per mL) IV (08:06)
== END 2022-10-31 07:03 | disposition home or self-care (01) ==
PROVIDERS: PCP Nurse Practitioner Family; Visit Provider Otolaryngology
DX: J01.90 Acute sinusitis, unspecified (principal); J34.2 Deviated nasal septum; R59.0 Localized enlarged lymph nodes
CPT/HCPCS: 70486; 70491; 82565; 84520; Q9967

== ENCOUNTER → 2022-11-26 14:51 | Outpatient (BNVA) | payer MEDICARE, SELFPAY | PROVIDERS: PCP Nurse Practitioner Family; Visit Provider Otolaryngology | DX: Z71.1 Person with feared health complaint in whom no diagnosis is made (principal) | CPT/HCPCS: 99212; 99213 ==

== ENCOUNTER 2023-07-27 10:25 | Outpatient (CLI) | payer MEDICARE, SELFPAY ==
--- NOTE | 2023-07-27 10:32 | XRR_ITS ---
PROCEDURE INFORMATION: Exam: XR Right Knee Exam date and time: 07/27/2023 10:47 AM Age: 68 years old Clinical indication: Prior surgery; Surgery date: 6+ months; Surgery type: Partial right knee replacement; Patient HX: No acute injury. Pain in the right knee for the last 6mo. ; Additional info: Pain in right knee (m25.561) TECHNIQUE: Imaging protocol: Radiologic exam of the right knee. Views: 1 or 2 views. COMPARISON: No relevant prior studies available. FINDINGS: Bones/joints: There is evidence of metallic surgical hardware present in the medial aspect of the right knee. Corresponding to a partial knee replacement. No acute bony abnormalities seen. Soft tissues: Normal. XR/XR knee RT 1-2V [id number] IMPRESSION: 1. Partial knee replacement medial aspect of the knee 2. Negative for acute bony abnormality
== END 2023-07-27 10:26 | disposition home or self-care (01) ==
PROVIDERS: PCP Nurse Practitioner Family; Visit Provider Nurse Practitioner Family
DX: M25.561 Pain in right knee (principal); Z96.651 Presence of right artificial knee joint
CPT/HCPCS: 73560

== ENCOUNTER 2024-01-01 17:49 | Emergency (ER) | payer MEDICARE, SELFPAY ==
--- NOTE | 2024-01-01 17:53 | USR_ITS ---
PROCEDURE INFORMATION: Exam: US Duplex Left Lower Extremity Veins, Limited Exam date and time: 01/01/2024 6:22 PM Age: 68 years old Clinical indication: Pain; Leg, lower; Left; Additional info: Leg pain TECHNIQUE: Imaging protocol: Real-time duplex ultrasound of the left extremity with 2-D dominguez scale, color Doppler flow and spectral waveform analysis including responses to compression and other maneuvers (when performed) with image documentation. Limited exam focused on the left lower extremity veins. COMPARISON: US pelvic limited [id number] 04/07/2022 1:25 PM FINDINGS: Left deep veins: Unremarkable. The common femoral, femoral, proximal profunda femoral, popliteal, posterior tibial and peroneal veins are patent without thrombus. Normal compressibility, augmentation response and Doppler waveforms. Superficial veins: Greater saphenous vein at the saphenofemoral junction is patent without thrombus. Soft tissues: Unremarkable. US/CV venous duplex [facility] [id number] IMPRESSION: No sonographic evidence of deep vein thrombosis.
--- NOTE | 2024-01-01 17:54 | ED_ITS ---
HPI - General Adult General: Chief complaint: Extremity Problem,Nontraumatic Stated complaint: left leg poss blood clot Time Seen by Provider: 01/01/24 17:53 History of Present Illness: 68-year-old female had a recent hip repl acement in the left hip due to a fracture that occurred a little over 1 week ago. Patient at this time is at the [facility] and [facility] care. Patient has had increased pain to her left leg. Patient appears nontoxic. Patient appears no acute distress. Patient has some mild swelling to the left lower leg. Patient has a history of GERD, seizure disorder, hypothyroidism, chronic pain, COPD, congestive heart failure. Patient appears nontoxic. Patient appears in mild pain. Related Data Home Medications Medication Instructions Recorded Confirmed baclofen 10 mg tablet 10 mg PO TID 02/24/19 11/26/22 divalproex 500 mg tablet,delayed 500 mg PO TID 02/24/19 11/26/22 release ferrous sulfate 325 mg (65 mg 325 mg PO DAILY@08 02/24/19 11/26/22 iron) tablet loperamide 2 mg capsule 2 mg PO Q4H PRN Diarrhea 02/24/19 11/26/22 prochlorperazine maleate 10 mg 10 mg PO Q6H 02/24/19 11/26/22 tablet (Compazine) budesonide-formoterol HFA 160 2 puff inhalation BID@0630,1600 04/13/19 11/26/22 mcg-4.5 mcg/actuation aerosol inhaler (Symbicort) docusate sodium 100 mg capsule 100 mg PO BID PRN Constipation 09/26/20 11/26/22 sennosides 8.6 mg-docusate sodium 2 tab-cap PO BEDTIME@20 09/26/20 11/26/22 50 mg capsule albuterol sulfate 90 mcg/actuation 2 puff inhalation Q6H PRN 11/29/20 11/26/22 aerosol inhaler Shortness Of Breath furosemide 40 mg tablet 40 mg PO BID@0630,1300 11/29/20 11/26/22 potassium chloride 20 mEq 20 meq PO BID@0630,1300 11/29/20 11/26/22 tablet,extended release phenytoin sodium extended 100 mg 100 mg PO TID 02/25/21 11/26/22 capsule (Dilantin Extended) acetaminophen 500 mg capsule 500 mg PO Q6H PRN 04/29/21 11/26/22 fexofenadine 180 mg tablet 180 mg PO DAILY 04/29/21 11/26/22 hydrocodone 5 mg-acetaminophen 300 1 tab PO BID PRN 04/29/21 11/26/22 mg tablet levothyroxine 50 mcg capsule 50 mcg PO DAILY 04/29/21 11/26/22 Lactobacillus acidophilus 75 1 cap PO DAILY 11/26/21 11/26/22 million cell-pectin 100 mg capsule (Acidophilus-Pectin) amitriptyline 10 mg tablet 10 mg PO DAILY 11/26/21 11/26/22 colestipol 1 gram tablet 1 g PO BID 11/26/21 11/26/22 dicyclomine 20 mg tablet 20 mg PO TID 11/26/21 11/26/22 gabapentin 600 mg tablet 800 mg PO TID 11/26/21 11/26/22 metoprolol succinate 100 mg 50 mg PO DAILY@08 11/26/21 11/26/22 tablet,extended release 24 hr naloxone 4 mg/actuation nasal 4 mg intranasal Q3M 11/26/21 11/26/22 spray (Narcan) ondansetron 4 mg disintegrating 4 mg PO TID 11/26/21 11/26/22 tablet pantoprazole 20 mg tablet,delayed 20 mg PO DAILY 11/26/21 11/26/22 release Previous Rx's Medication Instructions Recorded amoxicillin 875 mg-potassium 1 tab PO BID #60 tabs 05/06/21 clavulanate 125 mg tablet amoxicillin 875 mg-potassium 1 tab PO BID PRN Acute sinusitis 10/14/22 clavulanate 125 mg tablet 10 days #20 tabs Allergies Allergy/AdvReac Type Severity Reaction Status Date / Time nitrofurantoin Allergy Mild RASH Verified 11/26/22 14:54 [From Macrobid] adhesive tape Allergy Unknown Verified 11/26/22 14:54 aspirin Allergy na Verified 11/26/22 14:54 butorphanol Allergy na Verified 11/26/22 14:54 celecoxib [From Celebrex] Allergy na Verified 11/26/22 14:54 egg Allergy Unknown Verified 11/26/22 14:54 fentanyl [From Duragesic] Allergy na Verified 11/26/22 14:54 ibuprofen Allergy na Verified 11/26/22 14:54 imipramine Allergy na Verified 11/26/22 14:54 latex Allergy na Verified 11/26/22 14:54 loperamide Allergy na Verified 11/26/22 14:54 milk Allergy Unknown Verified 11/26/22 14:54 mirtazapine Allergy na Verified 11/26/22 14:54 oxaprozin [From Daypro] Allergy na Verified 11/26/22 14:54 sumatriptan [From Imitrex] Allergy na Verified 11/26/22 14:54 verapamil Allergy na Verified 11/26/22 14:54 Review of Systems General: Reports: 10 or more systems reviewed and unremarkable except in HPI and below Musc: Reports: extremity pain PFSH ED PFSH: Medical History AV block, 2nd degree Constipation GERD (gastroesophageal reflux disease) Hypertension Left flank pain Left renal stone Opioid dependence with current use Recurrent urinary tract infection Seizure disorder Urgency incontinence Urinary retention Surgical History H/O knee surgery History of colon resection History of intestinal surgery History of tonsillectomy Hx of arthroscopy of knee S/P appendectomy S/P brain surgery S/P cholecystectomy S/P hysterectomy S/P knee replacement Family History Family/Other CAD (coronary artery disease) Lung disease Mother , at age 87 Heart attack Father , AT AGE 56 Heart attack Denies family history of Colon cancer Ovarian cancer Diabetes Hypercholesteremia Breast cancer Hypertension Uterine cancer Thyroid disease Stroke Social History Substance/Drug Use: unknown Physical Exam Const: COMMON NORMALS: alert HENMT: COMMON NORMALS: atraumatic HEAD & SCALP: atraumatic Neck/C-Spine: COMMON NORMALS: full ROM Resp: COMMON NORMALS: normal respiratory effort Cardio: COMMON NORMALS: regular rate RATE: regular rate Extremity: COMMON NORMALS: normal to inspection LEFT LOWER EXTREMITY: Yes lower leg (Mild swelling, minimal tenderness.) Neuro: SENSORIUM/ORIENTATION: Yes alert Skin: COMMON NORMALS: turgor normal GENERAL SKIN EXAM: turgor normal Course Vital Signs: Vital signs: Vital Signs Temperature 97.7 F 01/01/24 17:58 Pulse Rate 79 01/01/24 18:20 Respiratory Rate 16 01/01/24 17:58 Blood Pressure 121/60 01/01/24 18:20 Pulse Oximetry 97 01/01/24 18:20 Oxygen Delivery Me thod Room Air 01/01/24 18:20 MDM - General Adult Medical Decision Making 68-year-old female comes in today for complaints of left leg pain and discomfort. Patient appears nontoxic. Patient appears no acute distress. Respirations are even. Lungs are clear to auscultation. Abdomen soft nontender. Patient has some mild swelling to the left lower extremity without any redness or changes in pulse. Differential diagnosis DVT, postsurgery pain, cellulitis. Ultrasound was noted to have no DVT. This was reviewed with patient with recommendations for continuing care and following up with primary care. Patient was given 0.5 mg of hydromorphone subcu for her immediate pain control. Patient was discharged back to her [facility] facility. Family transported her. All radiology interpretation(s) finalized by discharge Discharge Plan Discharge Patient Disposition: Home Clinical Impression: Post-op pain, Leg pain, left Condition: Stable Prescriptions: No Action divalproex 500 mg tablet,delayed release (DR/EC) 500 mg PO TID Rx Instructions: @06:30,12:00,16:00 ferrous sulfate 325 mg (65 mg iron) tablet 325 mg PO DAILY@08 baclofen 10 mg tablet 10 mg PO TID Rx Instructions: @06:30,12:00,20:00 loperamide 2 mg capsule 2 mg PO Q4H PRN (Reason: Diarrhea) prochlorperazine maleate [Compazine] 10 mg tablet 10 mg PO Q6H Rx Instructions: @05:00,12:00,17:00,23:00 gabapentin 600 mg tablet 800 mg PO TID Rx Instructions: @06:30,12:00,20:00 metoprolol succinate 100 mg tablet extended release 24 hr 50 mg PO DAILY@08 levothyroxine 50 mcg capsule 50 mcg PO DAILY fexofenadine 180 mg tablet 180 mg PO DAILY acetaminophen 500 mg capsule 500 mg PO Q6H PRN hydrocodone-acetaminophen 5-300 mg tablet 1 tab PO BID PRN Symbicort 160-4.5 mcg/actuation HFA aerosol inhaler 2 puff INHALATION BID@0630,1600 sennosides-docusate sodium 8.6-50 mg capsule 2 tab-cap PO BEDTIME@20 docusate sodium 100 mg capsule 100 mg PO BID PRN (Reason: Constipation) phenytoin sodium extended [Dilantin Extended] 100 mg capsule 100 mg PO TID amitriptyline 10 mg tablet 10 mg PO DAILY pantoprazole 20 mg tablet,delayed release (DR/EC) 20 mg PO DAILY Acidophilus-Pectin 75 million cell -100 mg capsule 1 cap PO DAILY dicyclomine 20 mg tablet 20 mg PO TID colestipol 1 gram tablet 1 g PO BID naloxone [Narcan] 4 mg/actuation spray,non-aerosol 4 mg intranasal Q3M Rx Instructions: spray 1 dose into ONE nostril; alternate nostrils w each dose until help arrives ondansetron 4 mg tablet,disintegrating 4 mg PO TID amoxicillin-pot clavulanate 875-125 mg tablet 1 tab PO BID PRN (Reason: Acute sinusitis) 10 Days Qty: 20 0RF amoxicillin-pot clavulanate 875-125 mg tablet 1 tab PO BID Qty: 60 2RF furosemide 40 mg Tablet 40 mg PO BID@0630,1300 albuterol sulfate 90 mcg/actuation Hfa Aerosol Inhaler 2 puff INHALATION Q6H PRN (Reason: Shortness Of Breath) potassium chloride 20 mEq Tablet Extended Release 20 meq PO BID@0630,1300 Discharge Orders: Discharge ED (Routine); Ordered 01/01/24 Ordered By: Kevin Donahue Referrals: Gudelia Aguila NP [Primary Care Provider] - Discharge Diet: Usual diet Discharge Activity: Increase activity as tolerated Patient Instructions: Opioid Safety, Pain Management Activity Restrictions/Additional Instructions: Continue with routine care. Follow-up with primary care. Coding Level of Care Code ED Heat Set Operator for Morelia Yeung
[2024-01-01 17:58] VITALS: BP 138/67; PULSE 81; RESP 16; TEMP 36.5; O2SAT 96
[2024-01-01 18:20] VITALS: BP 121/60; PULSE 79; O2SAT 97
[2024-01-01 19:01] VITALS: RESP 18; O2SAT 95
[2024-01-01] MEDS: HYDROmorphone 1 mg/mL INJ 1 mL 0.5 MG SUBCUT (19:01)
[2024-01-01 19:03] VITALS: BP 135/80; PULSE 78; O2SAT 95
== END 2024-01-01 19:09 | disposition home or self-care (01) ==
PROVIDERS: Emergency Provider Nurse Practitioner Family; PCP Nurse Practitioner Family
DX: G89.18 Other acute postprocedural pain (principal); Z96.642 Presence of left artificial hip joint
CPT/HCPCS: 93971; 96372; 99284; J1171

== ENCOUNTER 2024-04-08 13:01 | Outpatient (CLI) | payer MEDICARE, SELFPAY ==
--- NOTE | 2024-04-08 13:10 | XR_ITS ---
WS: [id number] Right knee, AP and lateral views, 04/08/2024 Clinical Data: PAIN IN RIGHT KNEE Comparison: Right knee, 07/27/2023 Findings: The patient has a medial arthroplasty component. The lateral joint space shows sclerosis narrowing and depression of the lateral tibial plateau. There is irregularity of the adjoining lateral femoral condyle. There are large spurs of the lateral tibial plateau and lateral femoral condyle. The posterior patella shows irregularity. There are no fractures or dislocations. The soft tissues are normal. XR/XR knee RT 1-2V [id number] Impression: 1. Medial hemiarthroplasty of the right knee. 2. Severe osteoarthritis of the lateral joint compartment and posterior right p atella.
== END 2024-04-08 13:02 | disposition home or self-care (01) ==
LOC: RAD 13:05
PROVIDERS: PCP Nurse Practitioner Family; Visit Provider Nurse Practitioner Family
DX: M17.11 Unilateral primary osteoarthritis, right knee (principal); Z98.890 Other specified postprocedural states; R93.6 Abnormal findings on diagnostic imaging of limbs; M76.891 Other specified enthesopathies of right lower limb, excluding foot
CPT/HCPCS: 73560

== ENCOUNTER → 2024-08-22 13:01 | Outpatient (BNVA) | payer MEDICARE, SELFPAY | PROVIDERS: PCP Nurse Practitioner Family; Referring Provider Nurse Practitioner Family; Visit Provider Anesthesiology Pain Medicine | DX: M54.9 Dorsalgia, unspecified (principal) | CPT/HCPCS: 99203 ==

== ENCOUNTER 2024-08-26 08:22 | Outpatient (CLI) | payer MEDICARE, SELFPAY ==
--- NOTE | 2024-08-26 08:29 | XR_ITS ---
WS: [id number] XR lumbar spine min 4V [id number] REASON FOR EXAM: M54.50 - Low back pain, unspecified FINDINGS: Decreased bone density. Significant rotatory levoscoliosis. Exaggerated lordosis. Wedge-shaped compression deformity of L1. This deformity was present on CT scan 07/20/2018. Biconcave compression deformity of L3. Vertebral body was normal on the CT scan of 07/20/2018. Disc spaces are intact and relatively well preserved. No spondylolysis. No significant neutral listhesis. XR/XR lumbar spine min 4V [id number] IMPRESSION: Compression deformity of L1 and chronic Compression deformity of L3 unknown chronicity.
--- NOTE | 2024-08-26 08:45 | MR_ITS ---
WS: [id number] MRI LUMBAR SPINE NONCONTRAST HISTORY: M54.16 - Radiculopathy, lumbar region COMPARISON: Radiograph 08/26/2024 TECHNIQUE: Sagittal and axial multisequence imaging is submitted. Extensive osteopenia involving all the vertebral bodies. Increase in thoracic kyphosis. There are multiple osteoporotic compression fractures in the thoracic spine including T1-T4, T6, T8 and T11. Cervical stenosis at C2-3 and C3-4. Variable signal from osteoporosis throughout the lumbar vertebral bodies. No marrow edema or acute fracture. 20% compression fracture L1. Mild anterior wedging of L3. Disc spaces are mildly narrowed and desiccated. Conus terminates normally at L1-2 disc level. L1-L2: Mild bilateral facet joint arthritis. No stenosis. L2-L3: Mild annular disc bulging with mild osteophytic ridging, ligamentum flavum and mild facet arthritis. Mild encroachment upon the posterior RIGHT lateral thecal sac by facet arthritis. Narrowing of the subarticular recess and encroachment upon the traversing RIGHT L3 nerve root. Mild central and RIGHT subarticular recess stenosis. L3-L4: Mild annular disc bulging slightly asymmetric to the LEFT. Effacement of ventral CSF. Moderate ligamentum flavum and facet arthritis. Mild central, bilateral subarticular recess and foraminal stenosis. L4-L5: Mild annular disc bulging with a broad-based central disc protrusion effacing CSF. Moderate ligamentum flavum and facet arthritis. Moderate central and bilateral subarticular recess stenosis and mild foraminal stenosis. Most significant contact on the traversing L5 nerve roots. L5-S1: Mild disc bulging. With a small central disc protrusion. Moderate ligamentum flavum and facet arthropathy. Small amount of fluid in the RIGHT facet joint. Mild disc encroachment upon the S1 nerve roots. Mild central and bilateral foraminal stenosis. Paravertebral soft tissues are negative for acute process. Muscle atrophy. MR/MR lumbar spine wo con* [id number] IMPRESSION: 1. Numerous osteoporotic thoracic and lumbar spine compression fractures as ab ove. No acute fractures are identified. 2. Multilevel facet joint arthropathy and ligamentum flavum disease and stenos es. 3. Mild stenosis RIGHT subarticular recess at L2-3 with encroachment upon the traversing RIGHT L3 nerve root. Mild central and subarticular recess stenosis. 4. Mild central and foraminal stenosis at L3-4 and L5-S1. 5. L4-5: Moderate central and bilateral subarticular recess stenosis with mild foraminal stenosis. Mild disc contact on the traversing L5 nerve roots.
== END 2024-08-26 08:23 | disposition home or self-care (01) ==
LOC: RAD 08:24
PROVIDERS: PCP Nurse Practitioner Family; Visit Provider Anesthesiology Pain Medicine
DX: M48.061 Spinal stenosis, lumbar region without neurogenic claudication (principal); M47.26 Other spondylosis with radiculopathy, lumbar region
CPT/HCPCS: 72110; 72148

== ENCOUNTER → 2024-10-04 09:54 | Outpatient (BNVA) | payer MEDICARE, SELFPAY | PROVIDERS: PCP Nurse Practitioner Family; Visit Provider Anesthesiology Pain Medicine | DX: M54.9 Dorsalgia, unspecified (principal) | CPT/HCPCS: 99214 ==